=== PATIENT | female | born 1975 | race Caucasian/White ===

== ENCOUNTER 2023-02-24 17:52 | Emergency (ER) | payer BC ==
[2023-02-24 18:07] VITALS: BP 117/90; PULSE 80; RESP 15; TEMP 98.5; BMI 21.7
[2023-02-24] MEDS ORDERED: predniSONE 20 MG TABLET (UD) PO ONE (18:09)
[2023-02-24] MEDS ORDERED: CEPHALEXIN MONOHYDRATE 500 MG CAPSULE (UD) PO ONE (18:09)
[2023-02-24] MEDS ORDERED: CEPHALEXIN MONOHYDRATE 500 MG CAPSULE (UD) ONE (18:10)
[2023-02-24] MEDS ORDERED: predniSONE 20 MG TABLET (UD) ONE (18:11)
== END 2023-02-24 18:16 | disposition home or self-care (01) ==
LOC: FER 17:52
DX: R21 Rash and other nonspecific skin eruption (principal); L03.116 Cellulitis of left lower limb; L30.9 Dermatitis, unspecified
CPT/HCPCS: 99283-25